=== PATIENT | female | born 1985 | race Two or more races ===

== ENCOUNTER 2018-09-11 11:44 | Inpatient (IN) | payer MEDICAID ==
[~2018-09-11] VITALS: Ht 132.1 cm; Wt 75.0 kg
[~2018-09-11 11:44] MED LIST: METF-370 PO
[2018-09-11 13:30] LABS: Basophils # (auto) 0.1 uL; Basophils % (auto) 0.8 % (0.0-2.0); Eosinophils # (auto) 0.3 uL; Monocytes # (auto) 0.5 uL
[2018-09-11 13:31] LABS: Eosinophils % (auto) 3.5 % (0.0-7.0); Hematocrit 42.6 % (36.0-46.0); Hemoglobin 13.4 g/dL (12.2-16.2); Lymphocytes # (auto) 2.5 uL; Lymphocytes % (auto) 29.6 % (10.0-50.0); Mean Corpuscular Hemoglobin 22.9 pg (28.0-32.0); Mean Corpuscular Hgb Conc. 31.5 g/dL (32.0-36.0); Mean Corpuscular Volume 72.6 fL (80.0-100.0); Monocytes % (auto) 5.5 % (0.0-12.0); Neutrophils # (auto) 5.1 uL; Neutrophils % (auto) 60.6 % (37.0-80.0); Nucleated Red Blood Cells % 0.1 %; Platelet Count (auto) 316 10^3/uL (140-450); Red Blood Cells 5.87 10^6/uL (4.0-5.20); Red Cell Distribution Width 18.7 % (11.8-14.3); White Blood Cell 8.4 10^3/uL (4.4-10.8)
[2018-09-11 13:39] LABS: INR 0.9 (0.9-1.15); Partial Thromboplastin Time 31.3 sec (23.78-33.04); Prothrombin Time 9.7 sec (9.27-12.13)
[2018-09-11 13:43] LABS: Albumin 3.6 g/dL (3.4-5.0); Potassium 3.6 mmol/L (3.5-5.1)
[2018-09-11 13:47] LABS: BUN/Creatinine Ratio 20.3
[2018-09-11 13:49] LABS: Bilirubin, Total 0.2 mg/dL (0.2-1.0); Total Protein 9.2 g/dL (6.4-8.2)
[2018-09-11] MEDS ORDERED: SODIUM CHLORIDE 0.9% 500 ML IV ONE (20:47)
[2018-09-11] MEDS ORDERED: VANCOMYCIN 1GM/250ML 250 ML IV ONE (21:00)
[2018-09-11] MEDS ORDERED: TEMAZEPAM 15 MG CAP PO PRN (21:15)
[2018-09-11] MEDS ORDERED: HYDROcodone-ACET 5/325MG TAB PO PRN (21:15)
[2018-09-11] MEDS ORDERED: DEXTROSE (50%) 50ML SYRG IV PRN (21:15)
[2018-09-11] MEDS ORDERED: ONDANSETRON HCL 4 MG/2 ML VIAL IV PRN (21:15)
[2018-09-11] MEDS ORDERED: ACETAMINOPHEN 325 MG TAB PO PRN (21:15)
[2018-09-11] MEDS: FAMOTIDINE 20 MG TAB PO SCH (22:00)
--- NOTE | 2018-09-11 22:30 | NUR ---
MS admit from ER DIANECHAPARRO admitted to MS room 298B. Patient oriented to NATHAN LEE, primary RN, unit, room, bed, and unit policies regarding patient care and visiting hours. Room air, pain 0/10, and wheelchair bound at baseline related to hx of spina bifida. Specialty mattress in place to preserve skin integrity. 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 [place] [facility] [place] present on admission. Patient weighed by bedscale and encouraged to call if they need something. All questions and concerns addressed, patient verbalized understanding. Patient is a Muslim and will not accept blood products.
--- NOTE | 2018-09-11 23:10 | NUR ---
Wound pictures taken of bilateral buttocks, sacrum, and left foot.
[2018-09-11 23:49] VITALS: BP 127/66
[2018-09-12] VITALS (7 sets, daily range): BP systolic 122–133; BP diastolic 74–87
[2018-09-12] MEDS: CLINDAMYCIN 900MG IV 50 ML IV SCH ×3 (00:11→13:27)
[2018-09-12] MEDS: ACCU-CHEK COMFORT CURVE STRIP VI SCH ×4 (00:30→18:04)
[2018-09-12] MEDS: InsuLIN REG 1unit/0.01ml Soln (100units/ml) SC SCH ×4 (00:30→18:04)
--- NOTE | 2018-09-12 03:52 | NUR ---
MRSA swab sent to lab via [facility] system.
[2018-09-12 06:34] LABS: Basophils # (auto) 0.1 uL
[2018-09-12 06:36] LABS: Basophils % (auto) 0.6 % (0.0-2.0); Eosinophils # (auto) 0.5 uL; Eosinophils % (auto) 5.5 % (0.0-7.0); Hematocrit 36.2 % (36.0-46.0); Hemoglobin 11.7 g/dL (12.2-16.2); Lymphocytes # (auto) 2.8 uL; Lymphocytes % (auto) 32.1 % (10.0-50.0); Mean Corpuscular Hemoglobin 23.2 pg (28.0-32.0); Mean Corpuscular Hgb Conc. 32.3 g/dL (32.0-36.0); Monocytes # (auto) 0.6 uL; Monocytes % (auto) 7.5 % (0.0-12.0); Neutrophils # (auto) 4.7 uL; Neutrophils % (auto) 54.3 % (37.0-80.0); Platelet Count (auto) 293 10^3/uL (140-450); Red Blood Cells 5.02 10^6/uL (4.0-5.20); Red Cell Distribution Width 18.1 % (11.8-14.3); White Blood Cell 8.6 10^3/uL (4.4-10.8)
[2018-09-12 06:47] LABS: Calcium 8.8 mg/dL (8.5-10.1); Potassium 3.8 mmol/L (3.5-5.1)
[2018-09-12 06:52] LABS: BUN/Creatinine Ratio 38.5; Bilirubin, Total 0.3 mg/dL (0.2-1.0); Total Protein 7.8 g/dL (6.4-8.2)
[2018-09-12] MEDS: FAMOTIDINE 20 MG TAB PO SCH ×2 (10:00→22:00)
[2018-09-12] MEDS: ENOXAPARIN SOD 40 MG/0.4 ML SYRINGE SC SCH (10:00)
[2018-09-12] MEDS: LEVOFLOXACIN 750MG 150 ML IV SCH (11:11)
--- NOTE | 2018-09-12 13:59 | NUR ---
MD ROUNDS DR DEAN AT BEDSIDE DISCUSSED POC WITH PATIENT, LIKELY TO NEED ANOTHER SURGERY, MRI'S ORDERED, PATIENT HAS JAILENE IN PLACE STILL FROM PREVIOUS SURGERY ON LEFT GREAT TOE REGION, DR. DEAN ORDERED REMOVAL OF JAILENE, JAILENE WERE REMOVED TODAY AT BEDSIDE BY RN, PT TOLERATED WELL, WOUND CLOSED AND WELL APPROXIMATED, ODOR NOTICED.
--- NOTE | 2018-09-12 17:30 | NUR ---
WOUND CARE NOTE: Wound care consult received from nursing for multiple wounds. Patient is a 32 yo female admitted for left foot osteomyelitis. Patient with a history of diabetes, hypertension and spina bifida who in June 2018 had an amputation of left great toe by Dr Ascencio. Patient is alert and denies pain. Last Quoc score is 12. Per H&P and Dr Ascencio' note, patient never followed up after discharge. Dr Ascencio has seen the patient this admission and has written orders for MRI. Patient also noted to have healing pressure injuries to bilateral buttocks/ischium tuberosities. Patient states that wounds never went to bone/muscle, but appear to be healing stage 3 pressure injuries. Patient states she has been having them treated at home and hasn't required surgical intervention. Patient also noted to have severe erythema to perianal skin and labia. Patient c/o of pain and itching to surrounding skin. Patient upon examination appears to have a yeast infection. Discussed with bedside RNKenneth and recommendations given. RECOMMENDATIONS: Dietary consult; turn q2hrs; Podiatry to manage left foot care; Nursing to cleanse bilateral buttock/ischium wounds with wound cleanser, pat dry, cover with OPTIFOAM GENTLE, change every three days/PRN; Nursing to cleanse perianal/labial skin with mild soap and water, pat dry, apply ANTIFUNGAL ointment, cover with thin application of ZGUARD BID/PRN; Nursing to notify MD and request Diflucan or similar medication for yeast infection; wound care team to follow. Addendum: 09/12/18 at 1920 by TIGIST ALVES RN Amended: Links added.
[2018-09-12] MEDS ORDERED: FLUCONAZOLE 100 MG TAB PO ONE (17:45)
--- NOTE | 2018-09-12 19:30 | NUR ---
Opening shift note Patient in bed alert and oriented x 4, verbally coherent able to make needs known. Patient's respiration even and unlabored, denies pain and discomfort at this time. Plan of care discussed, patient aware NPO after midnight, patient verbalized understanding. All needs attended, will continue to monitor.
[2018-09-12] MEDS: CLOTRIMAZOLE 1 % CREAM 15GM TOP SCH ×2 (22:00→22:42)
[2018-09-13] MEDS: ACCU-CHEK COMFORT CURVE STRIP VI SCH ×5 (02:28→23:53)
[2018-09-13 04:50] VITALS: BP 106/66
[2018-09-13] MEDS: InsuLIN REG 1unit/0.01ml Soln (100units/ml) SC SCH ×5 (06:00→23:53)
[2018-09-13 06:27] LABS: Basophils # (auto) 0.1 uL; Eosinophils # (auto) 0.4 uL; Hemoglobin 11.4 g/dL (12.2-16.2); Lymphocytes # (auto) 3.3 uL; Mean Corpuscular Hgb Conc. 31.4 g/dL (32.0-36.0); Neutrophils # (auto) 4.1 uL; White Blood Cell 8.4 10^3/uL (4.4-10.8)
[2018-09-13 06:30] LABS: Eosinophils % (auto) 5.3 % (0.0-7.0); Hematocrit 36.4 % (36.0-46.0); Lymphocytes % (auto) 39.3 % (10.0-50.0); Mean Corpuscular Hemoglobin 22.8 pg (28.0-32.0); Mean Corpuscular Volume 72.6 fL (80.0-100.0); Monocytes # (auto) 0.5 uL; Monocytes % (auto) 5.7 % (0.0-12.0); Neutrophils % (auto) 48.7 % (37.0-80.0); Nucleated Red Blood Cells % 0.1 %; Platelet Count (auto) 284 10^3/uL (140-450); Red Blood Cells 5.01 10^6/uL (4.0-5.20); Red Cell Distribution Width 18.3 % (11.8-14.3)
[2018-09-13 06:47] LABS: BUN/Creatinine Ratio 25.6; Calcium 8.7 mg/dL (8.5-10.1); Potassium 3.5 mmol/L (3.5-5.1)
--- NOTE | 2018-09-13 07:30 | NUR ---
Opening Shift Note Assumed care of patient, awake and alert. No S/S of distress/SOB or pain. Skin is warm and dry to touch, no s/s of hyperglycemia or hypoglycemia noted. Instructed on POC and to call for assist PRN, will continue to monitor for changes Q1hr and PRN.
[2018-09-13 08:00] VITALS: BP 131/52
--- NOTE | 2018-09-13 08:00 | NUR ---
Patient has UA order, explained to the patient that she needs to get straight cath due to she is incontinent. Patient refused to get it done.
[2018-09-13 09:00] VITALS: BP 131/52
[2018-09-13] MEDS: LEVOFLOXACIN 750MG 150 ML IV SCH (09:23)
[2018-09-13] MEDS: CLOTRIMAZOLE 1 % CREAM 15GM TOP SCH ×2 (09:28→22:53)
[2018-09-13] MEDS: FAMOTIDINE 20 MG TAB PO SCH ×2 (09:37→22:00)
[2018-09-13] MEDS: ENOXAPARIN SOD 40 MG/0.4 ML SYRINGE SC SCH (09:37)
--- NOTE | 2018-09-13 09:50 | NUR ---
Paged Dr. Ascencio regarding clarification of surgery schedule, awaiting to call back.
--- NOTE | 2018-09-13 10:05 | NUR ---
Received a call from Dr. 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
--- NOTE | 2018-09-13 10:34 | NUR ---
Spoke to OR nurse (Lesia) regarding received an order form Dr. Ascencio to schedule for excisional debridement of osteomyelitic bone to left first metatarsal.
--- NOTE | 2018-09-13 10:55 | NUR ---
ORDER AND CLINICALS FAXED TO [facility] FOR REVIEW
--- NOTE | 2018-09-13 11:30 | NUR ---
Dr. Ascencio at bedside.
--- NOTE | 2018-09-13 12:47 | NUR ---
Nutrition Consult/assessment Notes Please see attached link for complete assessment Est. Needs ABW [id number] kcal (20-23 kcal/kgBW), 56-67 gms pro (1.0-1.2 gms/kgBW r/t wounds). Will continue to monitor pertinent labs and reassess nutrient needs prn Addendum: 09/13/18 at [address] Amended: Links added.
[2018-09-13 13:00] VITALS: BP 139/84
[2018-09-13] MEDS: INSULIN LANTUS (GLARGINE) 1 /0.01ml (100units/ml) SC SCH (17:15)
[2018-09-13 18:19] VITALS: BP 123/81
[2018-09-13 22:00] VITALS: BP 141/74
[2018-09-13] MEDS: ASCORBIC ACID 500 MG TAB PO SCH (22:53)
[2018-09-14 05:11] VITALS: BP 105/70
[2018-09-14] MEDS: InsuLIN REG 1unit/0.01ml Soln (100units/ml) SC SCH ×3 (06:00→17:48)
[2018-09-14] MEDS: ACCU-CHEK COMFORT CURVE STRIP VI SCH ×3 (06:11→17:49)
[2018-09-14 06:54] LABS: Eosinophils # (auto) 0.4 uL; Hemoglobin 11.8 g/dL (12.2-16.2); Lymphocytes # (auto) 2.9 uL
[2018-09-14 06:56] LABS: Basophils # (auto) 0 uL; Basophils % (auto) 0.4 % (0.0-2.0); Hematocrit 37.8 % (36.0-46.0); Lymphocytes % (auto) 31.3 % (10.0-50.0); Mean Corpuscular Hemoglobin 22.6 pg (28.0-32.0); Mean Corpuscular Hgb Conc. 31.1 g/dL (32.0-36.0); Mean Corpuscular Volume 72.6 fL (80.0-100.0); Monocytes # (auto) 0.6 uL; Monocytes % (auto) 6.6 % (0.0-12.0); Neutrophils # (auto) 5.4 uL; Neutrophils % (auto) 57.7 % (37.0-80.0); Nucleated Red Blood Cells % 0.1 %; Platelet Count (auto) 290 10^3/uL (140-450); Red Blood Cells 5.21 10^6/uL (4.0-5.20); Red Cell Distribution Width 18.4 % (11.8-14.3); White Blood Cell 9.4 10^3/uL (4.4-10.8)
[2018-09-14 07:09] LABS: Calcium 8.6 mg/dL (8.5-10.1); Potassium 3.5 mmol/L (3.5-5.1)
--- NOTE | 2018-09-14 08:46 | NUR ---
Opening Shift Note Assumed care of patient, awake and alert. No S/S of distress/SOB or pain. Skin is warm and dry to touch, still NPO for Sx, no s/s of hyperglycemia or hypoglycemia noted. Instructed on POC and to call for assist PRN, will continue to monitor for changes Q1hr and PRN.
[2018-09-14] MEDS: LEVOFLOXACIN 750MG 150 ML IV SCH (08:54)
[2018-09-14] MEDS: CLOTRIMAZOLE 1 % CREAM 15GM TOP SCH ×2 (08:55→21:51)
[2018-09-14] MEDS: MULTIPLE VITAMIN TAB PO SCH (08:58)
[2018-09-14] MEDS: ASCORBIC ACID 500 MG TAB PO SCH ×2 (08:58→21:50)
[2018-09-14] MEDS: INSULIN LANTUS (GLARGINE) 1 /0.01ml (100units/ml) SC SCH (08:58)
[2018-09-14] MEDS: FAMOTIDINE 20 MG TAB PO SCH ×2 (08:58→21:50)
[2018-09-14 09:00] VITALS: BP 115/79
--- NOTE | 2018-09-14 09:39 | NUR ---
PATIENT HAS BEEN ACCEPTED WITH [facility] FOR START OF CARE 09-16-18 . [phone]. [facility] WILL BE DELIVERING THE IV MEDICATION. THEY WILL CALL AND ARRANGE A TIME WITH PATIENT. [phone].
--- NOTE | 2018-09-14 12:00 | NUR ---
Patient off unit to OR.
[2018-09-14] MEDS ORDERED: BUPIVACAINE 0.75% INJ 10ML MPV SDV IJ ONE (12:05)
[2018-09-14] MEDS ORDERED: ceFAZolin 1GM VL ONE (12:05)
[2018-09-14] MEDS ORDERED: NEOMYCIN-BACITRACIN-POLYM 15GM TOP OINT TOP ONE (12:05)
[2018-09-14] MEDS ORDERED: MIDAZOLAM HCL 1MG/1ML-2 ML VIAL ONE (12:51)
[2018-09-14] MEDS ORDERED: fentaNYL CITRATE 100 MCG/2 ML VL ONE (12:51)
[2018-09-14] MEDS ORDERED: PROPOFOL 10 MG/ML 20 ML IV ONE (12:51)
[2018-09-14] MEDS ORDERED: CLINDAMYCIN 600MG IV 100 ML IV ONE (12:52)
[2018-09-14] MEDS ORDERED: ROCURONIUM 10MG/ML 10ML VIAL IV ONE (13:07)
[2018-09-14] MEDS ORDERED: ONDANSETRON HCL 4 MG/2 ML VIAL IV ONE (14:15)
[2018-09-14] MEDS ORDERED: ePHEDrine SULFATE 50 MG/ML AMP IV PRN (14:15)
[2018-09-14] MEDS ORDERED: fentaNYL CITRATE 100 MCG/2 ML VL IV PRN (14:15)
[2018-09-14] MEDS ORDERED: hydrALAZINE HCL 20 MG/ML VL IV PRN (14:15)
--- NOTE | 2018-09-14 15:26 | NUR ---
Patient back to the floor, dressing to the left foot, dry, intact. Will continue to monitor.
--- NOTE | 2018-09-14 16:33 | NUR ---
assessment Patient is a 32 year old female who is alert and oriented. Prior to admission patient lived home with her family and boyfriend and functioned with their assistance. Per patient she will return home to her mothers house for IV antibiotics. Patient informed me her PCP is Cesar MANN. Patient informed me she has a wheelchair for home use. Patient is on service with [facility]. [facility] medical case manager is satisfying all home health needs. I informed patient she has a right to speak to a social worker delinquency prevention regarding all care. I informed patient she has a right to participate in any and all discharge planning. Patient is aware of visiting hours on the hospital floor. I informed patient she has a right to privacy. Patient does not have a POA and advanced directive. I have offered patient information on POA and advanced directives. I informed the patient the advantages and benefits of having an Advanced Directive. Patient verbalized understanding and agreed to discharge plan. Addendum: 09/14/18 at 1634 by Awilda ALAN Amended: Links added.
[2018-09-14 18:33] VITALS: BP 125/77
--- NOTE | 2018-09-14 20:00 | NUR ---
Left foot wound Upon assessment of left foot wound, drsg is noted to be with large amount of bloody drainage and drsg is reinforced at this time with 4x4 and kerlex. Will continue to monitor.
[2018-09-14 21:00] VITALS: BP 133/79
--- NOTE | 2018-09-15 00:30 | NUR ---
Left foot wound Small amount of drainage on reinforced drsg noted at this time. Will continue to monitor.
[2018-09-15] MEDS: ACCU-CHEK COMFORT CURVE STRIP VI SCH ×3 (01:03→11:35)
[2018-09-15 05:21] VITALS: BP 115/70
[2018-09-15] MEDS: InsuLIN REG 1unit/0.01ml Soln (100units/ml) SC SCH ×3 (06:00→11:34)
[2018-09-15 06:48] LABS: Basophils # (auto) 0.1 uL; Basophils % (auto) 0.6 % (0.0-2.0); Eosinophils # (auto) 0.3 uL; Eosinophils % (auto) 2.8 % (0.0-7.0); Mean Corpuscular Hgb Conc. 31.6 g/dL (32.0-36.0)
[2018-09-15 06:50] LABS: Calcium 8.5 mg/dL (8.5-10.1); Potassium 3.5 mmol/L (3.5-5.1)
[2018-09-15 06:53] LABS: BUN/Creatinine Ratio 31.3
[2018-09-15 06:57] LABS: Hematocrit 36.1 % (36.0-46.0); Hemoglobin 11.4 g/dL (12.2-16.2); Lymphocytes # (auto) 2.4 uL; Lymphocytes % (auto) 23.6 % (10.0-50.0); Mean Corpuscular Volume 72.6 fL (80.0-100.0); Monocytes # (auto) 0.7 uL; Monocytes % (auto) 7.5 % (0.0-12.0); Neutrophils # (auto) 6.6 uL; Neutrophils % (auto) 65.5 % (37.0-80.0); Platelet Count (auto) 262 10^3/uL (140-450); Red Blood Cells 4.96 10^6/uL (4.0-5.20); Red Cell Distribution Width 18.5 % (11.8-14.3)
[2018-09-15 09:00] VITALS: BP 115/64
[2018-09-15] MEDS: LEVOFLOXACIN 750MG 150 ML IV SCH (09:35)
[2018-09-15] MEDS: INSULIN LANTUS (GLARGINE) 1 /0.01ml (100units/ml) SC SCH (09:37)
[2018-09-15] MEDS: FAMOTIDINE 20 MG TAB PO SCH (09:37)
[2018-09-15] MEDS: MULTIPLE VITAMIN TAB PO SCH (09:37)
[2018-09-15] MEDS: CLOTRIMAZOLE 1 % CREAM 15GM TOP SCH (09:38)
[2018-09-15] MEDS: ASCORBIC ACID 500 MG TAB PO SCH (09:38)
--- NOTE | 2018-09-15 10:56 | NUR ---
Dressing to the left foot has a small amount of drainage.
[2018-09-15 13:00] VITALS: BP 118/80
--- NOTE | 2018-09-15 13:20 | NUR ---
Dr. Amirah An at bedside, patient is being discharge today.
--- NOTE | 2018-09-15 13:33 | NUR ---
Received a call from Dr. Ascencio stated patient clears to go home today and follow up with him on Monday. Patient notified.
--- NOTE | 2018-09-15 13:41 | NUR ---
Called [facility] [phone] , spoke to Gricelda, will provide nurse tomorrow.
--- NOTE | 2018-09-15 13:42 | NUR ---
Called [facility] ([facility]) IV infusion company regarding patient is being discharge today, left a message, awaiting to call back.
[2018-09-15] MEDS ORDERED: INSLANTI SC (13:45)
[2018-09-15] MEDS ORDERED: CLOT1CRE56 TOP (13:45)
[2018-09-15] MEDS ORDERED: INSREGI SC (13:45)
[2018-09-15] MEDS ORDERED: BLOO1KIT60 XX (13:45)
[2018-09-15] MEDS ORDERED: LEVO1INJ IV (13:45)
--- NOTE | 2018-09-15 13:59 | NUR ---
Dr. Mcclain paged regarding clarification of insulin order, left message.
--- NOTE | 2018-09-15 14:02 | NUR ---
Received a call from dr. Maynard, received orders, noted and carried out.
--- NOTE | 2018-09-15 14:07 | NUR ---
Received a call from [facility] ([facility]) stated will deliver IV Levaquin tomorrow.
[2018-09-15 14:26] VITALS: BP 118/80
--- NOTE | 2018-09-15 15:20 | NUR ---
Explained to the patient how to use and give insulin, patient return demonstration and verbalized understanding.
--- NOTE | 2018-09-15 15:28 | NUR ---
Discharge instructions given as ordered. Encourage to follow up with PMD (FOLLOWUP WITH YOUR PRIMARY CARE PROVIDER: DR. CHRIS CANTU DATE & TIME: OFFICE REQUESTS THAT PATIENT CALL TO MAKE APPOINTMENT TELEPHONE: [phone] ADDRESS: [address] [place] [id number], FOLLOWUP WITH DR. DEAN on Monday PLEASE CALL TO MAKE AN APPOINTMENT [address] [place] [address] , Follow up with outpatient infections disease in 1-2 weeks please get referral from PCP, Follow up with [facility] # [phone], Follow up with [facility] infusion #[phone]) as instructed. All questions and concerns addressed. Patient verbalized understanding. Medication reconciliation form completed and copy given to patient. IV removed with catheter intact, pressure dressing applied. Patient taken to vehicle via wheelchair with all personal belongings, accompanied by staff and family member. No distress noted at time of departure.
== END 2018-09-15 15:30 | disposition home health service (06) | DRG 314 ==
LOC: ER 11:44 → OVERFLOW 21:26 → WEST WING 22:30
PROVIDERS: ADMIT Nurse Practitioner; ATTEND Internal Medicine
PROC: 0QBP0ZZ Excision of Left Metatarsal, Open Approach (ICD-10-PCS; principal; 2018-09-14 12:52)
DX: E11.69 Type 2 diabetes mellitus with other specified complication (principal); M86.8X7 Other osteomyelitis, ankle and foot; E11.621 Type 2 diabetes mellitus with foot ulcer; E11.65 Type 2 diabetes mellitus with hyperglycemia; L03.116 Cellulitis of left lower limb; B37.2 Candidiasis of skin and nail; D63.8 Anemia in other chronic diseases classified elsewhere; L97.409 Non-pressure chronic ulcer of unspecified heel and midfoot with unspecified severity; Z91.19 Patient's noncompliance with other medical treatment and regimen; L29.8 Other pruritus; I10 Essential (primary) hypertension; B37.3 Candidiasis of vulva and vagina; Q05.9 Spina bifida, unspecified; Z88.0 Allergy status to penicillin; Z89.412 Acquired absence of left great toe; Z99.3 Dependence on wheelchair; Z79.4 Long term (current) use of insulin; Z83.3 Family history of diabetes mellitus; Z88.6 Allergy status to analgesic agent; Z88.8 Allergy status to other drugs, medicaments and biological substances; Z79.899 Other long term (current) drug therapy
CPT/HCPCS: 36415; 73700; 73718; 80048; 80053; 82962; 83036; 84702; 85025; 85610; 85730; 87040; 87081; 94761; 96374; G0378; J0690; J1815; J1956; J2250; J2405; J2704; J3490

== ENCOUNTER 2018-11-09 11:43 | Emergency (ER) | payer MEDICAID ==
[~2018-11-09] VITALS: Ht 142.2 cm; Wt 81.6 kg
[~2018-11-09 11:43] MED LIST changes: +BLOO1KIT60 XX; +CLOT1CRE56 TOP; +INSLANTI SC; +INSREGI SC; +LEVO1INJ IV; -METF-370 PO
[2018-11-09 11:51] VITALS: BP 142/81
[2018-11-14] MEDS ORDERED: CLIN1CAP4 PO (19:53)
[2018-11-14] MEDS ORDERED: APIX5TAB OR (19:54)
== END 2018-11-09 13:48 | disposition home or self-care (01) ==
LOC: EDBD 11:43 → ER 11:44
DX: M79.601 Pain in right arm (principal); E11.9 Type 2 diabetes mellitus without complications; I10 Essential (primary) hypertension; Z79.4 Long term (current) use of insulin; Z88.0 Allergy status to penicillin; Z88.6 Allergy status to analgesic agent; Z88.1 Allergy status to other antibiotic agents; Z45.2 Encounter for adjustment and management of vascular access device
CPT/HCPCS: 36569

== ENCOUNTER 2019-02-03 18:50 | Inpatient (IN) | payer MEDICAID | END 2019-02-09 16:54 | disposition home health service (06) | LOC: OVERFLOW 18:51 → TELE-WESTW 02-05 14:05 → ER 18:50 | DX: A41.9 Sepsis, unspecified organism (principal); E11.10 Type 2 diabetes mellitus with ketoacidosis without coma; L89.314 Pressure ulcer of right buttock, stage 4; L89.324 Pressure ulcer of left buttock, stage 4; K76.0 Fatty (change of) liver, not elsewhere classified; L02.31 Cutaneous abscess of buttock; N30.90 Cystitis, unspecified without hematuria; Q05.9 Spina bifida, unspecified; N13.9 Obstructive and reflux uropathy, unspecified; E87.6 Hypokalemia ==